=== PATIENT | female | born 1965 | race Two or more races ===

== ENCOUNTER 2023-07-25 10:04 | Emergency (ER) | payer OTHER, SELFPAY ==
[2023-07-25 10:09] VITALS: BP 127/82; PULSE 74; RESP 18; TEMP 36.9; O2SAT 95; BMI 31.8
--- NOTE | 2023-07-25 10:25 | ED.EYEPROB1 ---
HPI - Eye Problem General Chief complaint: Eye Problems Stated complaint: LT EYE INJURY Time Seen by Provider: 07/25/23 10:14 Source: patient Mode of arrival: walk-in Limitations: no limitations History of Present Illness HPI Narrative: The patient was with 3 to 4 days history of left eye irritation that started after she was washing her eyes and she was wearing mascara and apparently she thinks one of the lashes got inside her eyes she started scratching she is denying any other complaints of trauma and she mentioned that she sometimes feels that she have some blurry vision but when she blinks it get better and she goes back to normal. The patient have no other complaints of fever or any headache. The patient does not wear contact lenses Related Data Previous Rx's ?Medication ?Instructions ?Recorded tobramycin 0.3 % eye drops 2 drp ophthalmic (eye) Q4H #5 mL 07/25/23 Allergies Allergy/AdvReac Type Severity Reaction Status Date / Time No Known Drug Allergies Allergy Verified 07/25/23 10:13 Review of Systems ROS Status of ROS 10 or more systems reviewed and unremarkable except as noted in history and below Exam Narrative Exam Narrative: Nurses notes and vital signs reviewed and patient is not hypoxic. General: Well-appearing and in no apparent distress. Skin: Warm, dry, no pallor noted. No rash. Head: Normocephalic, atraumatic. Neck: Supple, non-tender. Eye: Pupils are equal, round and EOMI. the patient have conjunctival erythema in the left lower eyelid with mild edema as well the eye itself shows no orbital pathology no ulceration no hyphema no hypopyon noted pupils are reactive bilaterally. Ears, Nose, Mouth, and Throat: TM are clear, no nasal mucosal hypertrophy. Oral mucosa is moist, no posterior oropharynx erythema, uvula is mid-line Cardiovascular: Regular Rate and Rhythm without murmur, gallop or rub. Respiratory: No accessory muscle use or respiratory distress. Lungs are clear to auscultation, no wheezing, rales or rhonchi Chest Wall: no tenderness Back: No midline thoracic or lumbar vertebral tenderness. No CVA tenderness Musculoskeletal: normal ROM, no calf or popliteal tenderness, no lower extremity edema/swelling GI: Abdomen is soft, non-distended. Normal bowel sounds. No masses appreciated. No tenderness to palpation. No rebound, guarding, or rigidity noted. Neurological: A&O x4. No cranial nerve dysfunction observed. No truncal ataxia. Moves all extremities. Sensation intact. Psychiatric: Cooperative and interactive. Normal mood and affect. Constitutional Vital Signs, click to edit/add: Last Vital Signs Temp 98.4 F 07/25/23 10:09 Pulse 74 07/25/23 10:09 Resp 18 07/25/23 10:09 BP 127/82 07/25/23 10:09 Pulse Ox 95 07/25/23 10:09 O2 Del Method Room Air 07/25/23 10:09 Course Vital Signs Vital signs: Vital Signs Temperature 98.4 F 07/25/23 10:09 Pulse Rate 74 07/25/23 10:09 Respiratory Rate 18 07/25/23 10:09 Blood Pressure 127/82 07/25/23 10:09 Pulse Oximetry 95 07/25/23 10:09 Oxygen Delivery Method Room Air 07/25/23 10:09 Temperature 98.4 F 07/25/23 10:09 Pulse Rate 74 07/25/23 10:09 Respiratory Rate 18 07/25/23 10:09 Blood Pressure 127/82 07/25/23 10:09 Pulse Oximetry 95 07/25/23 10:09 Oxygen Delivery Method Room Air 07/25/23 10:09 MDM - Eye Problem MDM Narrative Medical decision making narrative: Patient presenting with a lower left eyelid conjunctivitis,, The patient was started on tobramycin and instructed about hygiene The patient to come back to the ER in case of any new symptoms of concern and she was referred to ophthalmology as outpatient to follow-up with outpatient within a week The patient to come back to us in case of any redness or any blurry vision The patient is to follow up with primary care physician in next 2-3 days or to return to the emergency department should any of the signs or symptoms worsen or new symptoms develop. The patient agrees with the following Diagnosis and Treatment plan and the patient will be discharged home. Discharge Plan Discharge Stand Alone Forms: Portal Instructions Chief Complaint: Eye Problems Clinical Impression: Conjunctivitis Qualifiers: Conjunctivitis type: acute Acute conjunctivitis type: unspecified Laterality: left Qualified Code(s): H10.32 - Unspecified acute conjunctivitis, left eye Patient Disposition: Home, Self-Care Time of Disposition Decision: :22 Condition: Good Prescriptions / Home Meds: New tobramycin 0.3 % drops 2 drp ophthalmic (eye) Q4H Qty: 5 0RF Rx Instructions: apply the left eye Print Language: [place] Referrals: David Do MD [Physician] - 1 week
== END 2023-07-25 10:39 | disposition home or self-care (01) ==
LOC: ER 10:25
PROVIDERS: Emergency Provider Emergency Medicine
DX: H10.32 Unspecified acute conjunctivitis, left eye (principal)
CPT/HCPCS: 99283